=== PATIENT | female | born 1995 | race Caucasian/White ===

== ENCOUNTER 2019-11-25 17:21 | Inpatient (IN) | payer MEDICAID ==
[~2019-11-25] VITALS: Ht 152.4 cm; Wt 79.4 kg
[2019-11-25] MEDS ORDERED: HALOPERIDOL 5 MG TABLET PO PRN (18:15)
[2019-11-25] MEDS ORDERED: ZOLPIDEM TARTRATE 10 MG TABLET PO PRN (18:15)
[2019-11-25] MEDS ORDERED: SERT50TA12 PO (18:39)
[2019-11-25] MEDS ORDERED: QUET100T PO (18:39)
[2019-11-25 19:23] VITALS: BP 106/67
[2019-11-25] MEDS: LORazepam 2 MG TABLET PO PRN (19:42)
[2019-11-25] MEDS ORDERED: CloNIDine HCL 0.1 MG TABLET PO PRN (23:45)
[2019-11-25] MEDS ORDERED: MAG HYDROX/AL HYDROX/SIMETH ES 30 ML SUSPENSION UDCUP PO PRN (23:45)
[2019-11-25] MEDS ORDERED: GuaiFENesin/D-METHORPHAN [SUGAR-FREE] 200-20MG/10 ML SYRUP UDCUP PO PRN (23:45)
[2019-11-25] MEDS ORDERED: ACETAMINOPHEN 325 MG TABLET PO PRN (23:45)
[2019-11-25] MEDS ORDERED: ALBUTEROL SULFATE HFA 90 MCG/PUFF 8 GM INHALER IH PRN (23:45)
[2019-11-25] MEDS ORDERED: IBUPROFEN 400 MG TABLET PO PRN (23:45)
[2019-11-25] MEDS ORDERED: LOPERAMIDE HCL 2 MG CAPSULE PO PRN (23:45)
[2019-11-25] MEDS ORDERED: MAGNESIUM HYDROXIDE SUSPENSION 30 ML UDCUP PO PRN (23:45)
[2019-11-25] MEDS ORDERED: NICOTINE 14 MG/24 HOUR PATCH TD PRN (23:45)
[2019-11-25] MEDS ORDERED: PETROLATUM,WHITE 28 GM JELLY TP PRN (23:45)
[2019-11-25] MEDS ORDERED: DOCUSATE SODIUM 100 MG CAPSULE PO PRN (23:45)
[2019-11-25] MEDS ORDERED: ONDANSETRON HCL 4 MG TABLET PO PRN (23:45)
[2019-11-26 03:47] VITALS: BP 100/68
[2019-11-26 07:59] LABS: BASOPHILS % (AUTO) 0.4 % (0.0-2.0); EOSINOPHILS % (AUTO) 1.4 % (1.0-6.0); HEMATOCRIT 34.1 % (36-46); HEMOGLOBIN 11.2 g/dL (12.0-16.0); LYMPHOCYTES % (AUTO) 31.9 % (22.0-44.0); MEAN CORPUSCULAR HEMOGLOBIN 28.8 pg (26.0-34.0); MEAN CORPUSCULAR HGB CONC 32.8 G/dL (31.0-37.0); MEAN CORPUSCULAR VOLUME 88 fL (80-100); MONOCYTES # (AUTO) 0.4 K/uL (0.1-1.0); MONOCYTES % (AUTO) 7.1 % (2.0-9.0); NEUTROPHILS # (AUTO) 3.7 K/uL (1.8-7.7); NEUTROPHILS % (AUTO) 59.2 % (40.0-70.0); PLATELET COUNT (AUTO) 321 K/uL (150-450); RED BLOOD CELL COUNT(AUTO) 3.88 MIL/uL (4.00-5.20)
[2019-11-26 08:17] LABS: ALANINE AMINOTRANSFERASE 33 U/L (12-78); ALBUMIN 3.1 g/dL (3.4-5.0); ALKALINE PHOSPHATASE 57 U/L (46-116); ANION GAP 5 mmol/L (8-16); ASPARTATE AMINOTRANSFERASE 14 U/L (15-37); BILIRUBIN,TOTAL 0.3 mg/dL (0.1-1.0); CALCIUM, TOTAL 8.6 mg/dL (8.8-10.5); CARBON DIOXIDE 28 mmol/L (22-29); CHLORIDE 106 mmol/L (98-107); CHOL/HDL RATIO 2.5 (3.9-5.7); CHOLESTEROL 208 mg/dL (131-200); CREATININE 0.57 mg/dL (0.60-1.30); GLOMERULAR FILTR. RATE CALC > 60 mL/min (>60); GLUCOSE,RANDOM 83 mg/dL (70-110); HCG,QUANTITATIVE < 1 mIU/mL (0-6); HDL CHOLESTEROL 82 mg/dL (40-60); LDL CHOL (CALC.) 113 mg/dL (0-130); POTASSIUM 4.1 mmol/L (3.5-5.1); SODIUM SERUM 139 mmol/L (136-145); THYROID STIMULATING HORMONE 1.82 uIU/mL (0.36-3.74); TOTAL PROTEIN, SERUM 6.4 g/dL (6.4-8.2); TRIGLYCERIDES 64 mg/dL (15-150); UREA NITROGEN, BLOOD 9 mg/dL (7-18)
[2019-11-26 08:19] VITALS: BP 121/68
[2019-11-26] MEDS: LORazepam 2 MG TABLET PO PRN ×2 (12:43→21:15)
[2019-11-26 16:04] VITALS: BP 105/63
[2019-11-26] MEDS: QUEtiapine FUMARATE 100 MG TABLET PO SCH (21:15)
[2019-11-27 03:37] VITALS: BP 101/76
[2019-11-27 08:31] VITALS: BP 114/68
[2019-11-27] MEDS: SERTRALINE HCL 100 MG TABLET PO SCH (09:20)
[2019-11-27] MEDS: LORazepam 2 MG TABLET PO PRN ×2 (12:43→20:07)
[2019-11-27 16:13] VITALS: BP 118/69
[2019-11-27] MEDS: QUEtiapine FUMARATE 100 MG TABLET PO SCH (20:07)
[2019-11-28 04:28] VITALS: BP 101/78
[2019-11-28 08:22] VITALS: BP 100/60
[2019-11-28] MEDS: SERTRALINE HCL 100 MG TABLET PO SCH (09:37)
[2019-11-28] MEDS: LORazepam 2 MG TABLET PO PRN ×2 (12:33→20:35)
[2019-11-28 16:24] VITALS: BP 103/61
[2019-11-28] MEDS: QUEtiapine FUMARATE 100 MG TABLET PO SCH (20:35)
[2019-11-29 03:45] VITALS: BP 100/76
[2019-11-29] MEDS: SERTRALINE HCL 100 MG TABLET PO SCH (08:31)
[2019-11-29 08:40] VITALS: BP 102/55
[2019-11-29 10:38] VITALS: BP 112/70
[2019-11-29] MEDS: LORazepam 2 MG TABLET PO PRN ×2 (10:39→20:40)
[2019-11-29 16:06] VITALS: BP 114/71
[2019-11-29] MEDS: QUEtiapine FUMARATE 100 MG TABLET PO SCH (20:40)
[2019-11-30 04:46] VITALS: BP 100/72
[2019-11-30] MEDS: SERTRALINE HCL 100 MG TABLET PO SCH (08:19)
[2019-11-30 08:20] VITALS: BP 113/60
[2019-11-30] MEDS: LORazepam 2 MG TABLET PO PRN (12:00)
[2019-11-30 16:41] VITALS: BP 122/76
[2019-11-30] MEDS: QUEtiapine FUMARATE 100 MG TABLET PO SCH (21:17)
[2019-12-01 02:12] VITALS: BP 100/72
[2019-12-01 08:24] VITALS: BP 104/60
[2019-12-01] MEDS: SERTRALINE HCL 100 MG TABLET PO SCH (08:52)
[2019-12-01] MEDS: LORazepam 2 MG TABLET PO PRN (10:38)
[2019-12-01] MEDS ORDERED: SERT100T12 PO (15:17)
== END 2019-12-01 18:22 | disposition home or self-care (01) | DRG 751 ==
LOC: EDBD 18:36 → B3A 18:36
PROVIDERS: ADMIT Psychiatry & Neurology Psychiatry; ATTEND Psychiatry & Neurology Psychiatry
DX: F33.3 Major depressive disorder, recurrent, severe with psychotic symptoms (principal); D64.9 Anemia, unspecified; E78.5 Hyperlipidemia, unspecified; E66.9 Obesity, unspecified; K21.9 Gastro-esophageal reflux disease without esophagitis; Z59.0 Homelessness; Z68.34 Body mass index [BMI] 34.0-34.9, adult
CPT/HCPCS: 83036; 84436; 84439; 84443; 87081

== ENCOUNTER 2020-10-20 07:09 | Emergency (ER) | payer MEDICAID, OTHER ==
[~2020-10-20] VITALS: Ht 152.4 cm; Wt 68.2 kg
[~2020-10-20 07:09] MED LIST: QUET100T PO; SERT100T12 PO
[2020-10-20 07:57] LABS: BASOPHILS % (AUTO) 0.3 % (0.0-2.0); EOSINOPHILS % (AUTO) 0.5 % (1.0-6.0); HEMATOCRIT 38.5 % (36-46); HEMOGLOBIN 12.6 g/dL (12.0-16.0); LYMPHOCYTES # (AUTO) 1.3 K/uL (1.0-4.8); LYMPHOCYTES % (AUTO) 25.5 % (22.0-44.0); MEAN CORPUSCULAR HEMOGLOBIN 29.3 pg (26.0-34.0); MEAN CORPUSCULAR HGB CONC 32.6 G/dL (31.0-37.0); MEAN CORPUSCULAR VOLUME 90 fL (80-100); MONOCYTES # (AUTO) 0.3 K/uL (0.1-1.0); MONOCYTES % (AUTO) 6.7 % (2.0-9.0); NEUTROPHILS # (AUTO) 3.3 K/uL (1.8-7.7); PLATELET COUNT (AUTO) 297 K/uL (150-450); RED BLOOD CELL COUNT(AUTO) 4.28 MIL/uL (4.00-5.20); RED CELL DISTRIBUTION WIDTH 13.9 % (11.5-14.5)
[2020-10-20 08:07] LABS: ANION GAP 9 mmol/L (8-16); CALCIUM, TOTAL 8.2 mg/dL (8.8-10.5); CARBON DIOXIDE 27 mmol/L (22-29); CHLORIDE 104 mmol/L (98-107); CREATININE 0.66 mg/dL (0.60-1.30); GLOMERULAR FILTR. RATE CALC > 60 mL/min (>60); GLUCOSE,RANDOM 88 mg/dL (70-110); POTASSIUM 3.2 mmol/L (3.5-5.1); SODIUM SERUM 140 mmol/L (136-145); UREA NITROGEN, BLOOD 9 mg/dL (7-18)
[2020-10-20 08:12] LABS: ALANINE AMINOTRANSFERASE 137 U/L (12-78); ALBUMIN 3.9 g/dL (3.4-5.0); ALKALINE PHOSPHATASE 97 U/L (46-116); ASPARTATE AMINOTRANSFERASE 78 U/L (15-37); BILIRUBIN,TOTAL 0.3 mg/dL (0.1-1.0)
[2020-10-20 10:21] LABS: AMPHET/METH SCREEN,URINE NEGATIVE (NEGATIVE); BARBITURATE SCREEN, URINE NEGATIVE (NEGATIVE); BENZODIAZEPINES SCREEN,URINE NEGATIVE (NEGATIVE); CANNABINOID SCREEN,URINE POSITIVE (NEGATIVE); COCAINE SCREEN,URINE NEGATIVE (NEGATIVE); METHADONE SCREEN, URINE NEGATIVE (NEGATIVE); OPIATE SCREEN,URINE NEGATIVE (NEGATIVE)
[2020-10-20 10:27] LABS: PHENCYCLIDINE SCREEN,URINE NEGATIVE (NEGATIVE)
[2020-10-20] MEDS ORDERED: POTASSIUM CHLORIDE 20 MEQ ER TABLET PO ONE (11:15)
[2020-10-20 11:45] LABS: HCG,QUANTITATIVE 1 mIU/mL (0-6)
[2020-10-20 13:58] VITALS: BP 107/61
== END 2020-10-20 14:02 | disposition home or self-care (01) ==
LOC: EMS 07:09
DX: F32.9 Major depressive disorder, single episode, unspecified (principal); F12.90 Cannabis use, unspecified, uncomplicated; F11.90 Opioid use, unspecified, uncomplicated
CPT/HCPCS: 36415; 80053; 80307; 81025; 84702; 85025; 99285; G0480

== ENCOUNTER 2020-10-21 10:23 | Inpatient (IN) | payer MEDICAID, OTHER ==
[~2020-10-21] VITALS: Ht 149.9 cm; Wt 75.3 kg
[2020-10-21 11:33] LABS: BASOPHILS % (AUTO) 0.4 % (0.0-2.0); EOSINOPHILS % (AUTO) 0.4 % (1.0-6.0); HEMATOCRIT 36.9 % (36-46); LYMPHOCYTES % (AUTO) 19.9 % (22.0-44.0); MEAN CORPUSCULAR HEMOGLOBIN 29.2 pg (26.0-34.0); MEAN CORPUSCULAR HGB CONC 32.6 G/dL (31.0-37.0); MEAN CORPUSCULAR VOLUME 90 fL (80-100); MONOCYTES # (AUTO) 0.4 K/uL (0.1-1.0); MONOCYTES % (AUTO) 8.4 % (2.0-9.0); NEUTROPHILS # (AUTO) 3.5 K/uL (1.8-7.7); NEUTROPHILS % (AUTO) 70.9 % (40.0-70.0); PLATELET COUNT (AUTO) 263 K/uL (150-450); RED BLOOD CELL COUNT(AUTO) 4.12 MIL/uL (4.00-5.20); RED CELL DISTRIBUTION WIDTH 13.9 % (11.5-14.5)
[2020-10-21 11:41] LABS: ANION GAP 14 mmol/L (8-16); CALCIUM, TOTAL 8.4 mg/dL (8.8-10.5); CARBON DIOXIDE 23 mmol/L (22-29); CHLORIDE 105 mmol/L (98-107); CREATININE 0.78 mg/dL (0.60-1.30); GLOMERULAR FILTR. RATE CALC > 60 mL/min (>60); GLUCOSE,RANDOM 76 mg/dL (70-110); POTASSIUM 3.7 mmol/L (3.5-5.1); SODIUM SERUM 142 mmol/L (136-145); UREA NITROGEN, BLOOD 15 mg/dL (7-18)
[2020-10-21 11:48] LABS: COVID AG,FIA SOURCE NASOPHARYNGEAL
[2020-10-21 12:00] LABS: ALANINE AMINOTRANSFERASE 97 U/L (12-78); ALBUMIN 3.6 g/dL (3.4-5.0); ALKALINE PHOSPHATASE 84 U/L (46-116); ASPARTATE AMINOTRANSFERASE 36 U/L (15-37); BILIRUBIN,TOTAL 0.6 mg/dL (0.1-1.0); HCG,QUANTITATIVE 1 mIU/mL (0-6); TOTAL PROTEIN, SERUM 7.4 g/dL (6.4-8.2)
[2020-10-21] MEDS ORDERED: HALOPERIDOL 5 MG TABLET PO PRN (12:45)
[2020-10-21] MEDS ORDERED: ZOLPIDEM TARTRATE 10 MG TABLET PO PRN (12:45)
[2020-10-21] MEDS ORDERED: LORazepam 2 MG TABLET PO PRN (12:45)
[2020-10-21 15:04] VITALS: BP 107/70
[2020-10-21 16:18] VITALS: BP 108/72
[2020-10-21] MEDS: QUEtiapine FUMARATE 100 MG TABLET PO SCH (20:15)
[2020-10-22] MEDS ORDERED: INFLUENZA VIRUS VACCINE QVS 2020-21 (6MO+)/PF 60 MCG/0.5 ML SYRINGE IM ONE (07:30)
[2020-10-22] MEDS ORDERED: MAG HYDROX/AL HYDROX/SIMETH ES 30 ML SUSPENSION UDCUP PO PRN (08:00)
[2020-10-22] MEDS ORDERED: ALBUTEROL SULFATE HFA 90 MCG/PUFF 8 GM INHALER IH PRN (08:00)
[2020-10-22] MEDS ORDERED: PETROLATUM,WHITE 28 GM JELLY TP PRN (08:00)
[2020-10-22] MEDS ORDERED: ACETAMINOPHEN 325 MG TABLET PO PRN (08:00)
[2020-10-22] MEDS ORDERED: DOCUSATE SODIUM 100 MG CAPSULE PO PRN (08:00)
[2020-10-22] MEDS ORDERED: ONDANSETRON HCL 4 MG TABLET PO PRN (08:00)
[2020-10-22] MEDS ORDERED: GuaiFENesin/D-METHORPHAN [SUGAR-FREE] 200-20MG/10 ML SYRUP UDCUP PO PRN (08:00)
[2020-10-22] MEDS ORDERED: MAGNESIUM HYDROXIDE SUSPENSION 30 ML UDCUP PO PRN (08:00)
[2020-10-22] MEDS ORDERED: IBUPROFEN 400 MG TABLET PO PRN (08:00)
[2020-10-22] MEDS ORDERED: NICOTINE 14 MG/24 HOUR PATCH TD PRN (08:00)
[2020-10-22] MEDS ORDERED: CloNIDine HCL 0.1 MG TABLET PO PRN (08:00)
[2020-10-22] MEDS: SERTRALINE HCL 100 MG TABLET PO SCH (08:36)
[2020-10-22 08:51] VITALS: BP 106/56
[2020-10-22 16:27] VITALS: BP 103/60
[2020-10-22] MEDS: QUEtiapine FUMARATE 100 MG TABLET PO SCH (20:07)
[2020-10-23 00:28] VITALS: BP 102/64
[2020-10-23 08:13] VITALS: BP 100/61
[2020-10-23] MEDS: SERTRALINE HCL 100 MG TABLET PO SCH (08:29)
[2020-10-23 16:06] VITALS: BP 135/73
[2020-10-23] MEDS: QUEtiapine FUMARATE 100 MG TABLET PO SCH (20:45)
[2020-10-24 00:33] VITALS: BP 103/62
[2020-10-24 08:08] VITALS: BP 114/79
[2020-10-24] MEDS: SERTRALINE HCL 100 MG TABLET PO SCH (08:10)
[2020-10-24 16:07] VITALS: BP 113/69
[2020-10-24] MEDS: QUEtiapine FUMARATE 100 MG TABLET PO SCH (20:21)
[2020-10-25 06:24] VITALS: BP 107/60
[2020-10-25] MEDS: SERTRALINE HCL 100 MG TABLET PO SCH (08:29)
[2020-10-25 11:03] VITALS: BP 116/66
[2020-10-25 16:39] VITALS: BP 100/62
[2020-10-25] MEDS: QUEtiapine FUMARATE 100 MG TABLET PO SCH (20:18)
[2020-10-26 00:40] VITALS: BP 106/62
[2020-10-26 08:28] LABS: COVID AG,FIA SOURCE NASOPHARYNGEAL
[2020-10-26 08:46] VITALS: BP 102/67
[2020-10-26] MEDS: SERTRALINE HCL 100 MG TABLET PO SCH (08:49)
[2020-10-26] MEDS: LOPERAMIDE HCL 2 MG CAPSULE PO PRN (20:05)
[2020-10-26] MEDS: QUEtiapine FUMARATE 100 MG TABLET PO SCH (20:05)
[2020-10-27 05:46] VITALS: BP 107/61
[2020-10-27] MEDS: SERTRALINE HCL 100 MG TABLET PO SCH (08:24)
[2020-10-27 09:29] VITALS: BP 100/64
[2020-10-27 16:20] VITALS: BP 102/60
[2020-10-27] MEDS: LOPERAMIDE HCL 2 MG CAPSULE PO PRN (20:12)
[2020-10-27] MEDS: QUEtiapine FUMARATE 100 MG TABLET PO SCH (20:12)
[2020-10-28 07:06] VITALS: BP 111/62
[2020-10-28 07:51] LABS: CHOL/HDL RATIO 3.2 (3.9-5.7)
[2020-10-28] MEDS: SERTRALINE HCL 100 MG TABLET PO SCH (08:06)
[2020-10-28 08:29] VITALS: BP 107/60
[2020-10-28 16:22] VITALS: BP 110/70
[2020-10-28] MEDS: QUEtiapine FUMARATE 100 MG TABLET PO SCH (20:13)
[2020-10-29 06:05] VITALS: BP 99/67
[2020-10-29 08:56] VITALS: BP 130/88
[2020-10-29] MEDS: SERTRALINE HCL 100 MG TABLET PO SCH (10:13)
[2020-10-29 16:19] VITALS: BP 110/60
[2020-10-29] MEDS: QUEtiapine FUMARATE 100 MG TABLET PO SCH (20:13)
[2020-10-30 06:41] VITALS: BP 91/55
[2020-10-30 08:28] VITALS: BP 106/62
[2020-10-30] MEDS: SERTRALINE HCL 100 MG TABLET PO SCH (08:49)
[2020-10-30 17:36] VITALS: BP 108/60
[2020-10-30] MEDS: QUEtiapine FUMARATE 100 MG TABLET PO SCH (20:22)
[2020-10-31 01:17] VITALS: BP 102/63
[2020-10-31] MEDS: SERTRALINE HCL 100 MG TABLET PO SCH (08:45)
[2020-10-31 08:56] VITALS: BP 111/62
== END 2020-10-31 09:57 | disposition home or self-care (01) | DRG 750 ==
LOC: EMS 10:23 → B2S 14:31
PROVIDERS: ADMIT Psychiatry & Neurology Psychiatry; ATTEND Psychiatry & Neurology Psychiatry
DX: F20.9 Schizophrenia, unspecified (principal); E66.9 Obesity, unspecified; I95.9 Hypotension, unspecified; F17.200 Nicotine dependence, unspecified, uncomplicated; R45.851 Suicidal ideations; Z20.822 Contact with and (suspected) exposure to COVID-19; G40.909 Epilepsy, unspecified, not intractable, without status epilepticus; Z81.1 Family history of alcohol abuse and dependence; Z59.0 Homelessness; Z79.899 Other long term (current) drug therapy; Z68.33 Body mass index [BMI] 33.0-33.9, adult
CPT/HCPCS: 87426; 90686; 99285; G0480

== ENCOUNTER 2020-11-30 15:10 | Inpatient (IN) | payer MEDICAID, OTHER ==
[~2020-11-30] VITALS: Ht 157.5 cm; Wt 79.5 kg
[~2020-11-30 15:10] MED LIST changes: +SERT-162 PO; -SERT100T12 PO
[2020-11-30 16:26] LABS: BASOPHILS % (AUTO) 0.4 % (0.0-2.0); EOSINOPHILS % (AUTO) 0.8 % (1.0-6.0); HEMATOCRIT 34.3 % (36-46); HEMOGLOBIN 11.3 g/dL (12.0-16.0); LYMPHOCYTES # (AUTO) 1.5 K/uL (1.0-4.8); MEAN CORPUSCULAR HEMOGLOBIN 29.2 pg (26.0-34.0); MEAN CORPUSCULAR HGB CONC 32.8 G/dL (31.0-37.0); MEAN CORPUSCULAR VOLUME 89 fL (80-100); MONOCYTES # (AUTO) 0.4 K/uL (0.1-1.0); MONOCYTES % (AUTO) 6.8 % (2.0-9.0); NEUTROPHILS # (AUTO) 3.5 K/uL (1.8-7.7); PLATELET COUNT (AUTO) 284 K/uL (150-450); RED BLOOD CELL COUNT(AUTO) 3.86 MIL/uL (4.00-5.20); RED CELL DISTRIBUTION WIDTH 13.8 % (11.5-14.5)
[2020-11-30 16:35] LABS: ANION GAP 9 mmol/L (8-16); CALCIUM, TOTAL 8.7 mg/dL (8.8-10.5); CARBON DIOXIDE 26 mmol/L (22-29); CHLORIDE 105 mmol/L (98-107); CREATININE 0.68 mg/dL (0.60-1.30); GLOMERULAR FILTR. RATE CALC > 60 mL/min (>60); GLUCOSE,RANDOM 112 mg/dL (70-110); POTASSIUM 3.8 mmol/L (3.5-5.1); SODIUM SERUM 140 mmol/L (136-145); UREA NITROGEN, BLOOD 12 mg/dL (7-18)
[2020-11-30 16:40] LABS: ALANINE AMINOTRANSFERASE 117 U/L (12-78); ALBUMIN 3.3 g/dL (3.4-5.0); ALKALINE PHOSPHATASE 96 U/L (46-116); ASPARTATE AMINOTRANSFERASE 32 U/L (15-37); BILIRUBIN,TOTAL 0.2 mg/dL (0.1-1.0); TOTAL PROTEIN, SERUM 7.1 g/dL (6.4-8.2)
[2020-11-30 17:04] LABS: COVID AG,FIA SOURCE NASOPHARYNGEAL
[2020-11-30 17:26] LABS: AMPHET/METH SCREEN,URINE NEGATIVE (NEGATIVE); BARBITURATE SCREEN, URINE NEGATIVE (NEGATIVE); BENZODIAZEPINES SCREEN,URINE NEGATIVE (NEGATIVE); CANNABINOID SCREEN,URINE POSITIVE (NEGATIVE); COCAINE SCREEN,URINE NEGATIVE (NEGATIVE); METHADONE SCREEN, URINE NEGATIVE (NEGATIVE); OPIATE SCREEN,URINE NEGATIVE (NEGATIVE)
[2020-11-30 17:27] LABS: PHENCYCLIDINE SCREEN,URINE NEGATIVE (NEGATIVE)
[2020-11-30] MEDS ORDERED: ACETAMINOPHEN 325 MG TABLET PO ONE (20:15)
[2020-11-30] MEDS ORDERED: HALOPERIDOL 5 MG TABLET PO PRN (21:00)
[2020-12-01 04:27] VITALS: BP 100/61
[2020-12-01] MEDS ORDERED: INFLUENZA VIRUS VACCINE QVS 2020-21 (6MO+)/PF 60 MCG/0.5 ML SYRINGE IM ONE (04:45)
[2020-12-01] MEDS ORDERED: ACETAMINOPHEN 325 MG TABLET PO PRN (08:30)
[2020-12-01] MEDS ORDERED: MAGNESIUM HYDROXIDE SUSPENSION 30 ML UDCUP PO PRN (08:30)
[2020-12-01] MEDS ORDERED: PETROLATUM,WHITE 28 GM JELLY TP PRN (08:30)
[2020-12-01] MEDS ORDERED: DOCUSATE SODIUM 100 MG CAPSULE PO PRN (08:30)
[2020-12-01] MEDS ORDERED: LOPERAMIDE HCL 2 MG CAPSULE PO PRN (08:30)
[2020-12-01] MEDS ORDERED: NICOTINE 14 MG/24 HOUR PATCH TD PRN (08:30)
[2020-12-01] MEDS ORDERED: CloNIDine HCL 0.1 MG TABLET PO PRN (08:30)
[2020-12-01] MEDS ORDERED: ONDANSETRON HCL 4 MG TABLET PO PRN (08:30)
[2020-12-01] MEDS ORDERED: MAG HYDROX/AL HYDROX/SIMETH ES 30 ML SUSPENSION UDCUP PO PRN (08:30)
[2020-12-01] MEDS ORDERED: GuaiFENesin/D-METHORPHAN [SUGAR-FREE] 200-20MG/10 ML SYRUP UDCUP PO PRN (08:30)
[2020-12-01] MEDS ORDERED: IBUPROFEN 400 MG TABLET PO PRN (08:30)
[2020-12-01] MEDS ORDERED: ALBUTEROL SULFATE HFA 90 MCG/PUFF 8 GM INHALER IH PRN (08:30)
[2020-12-01 09:17] VITALS: BP 104/71
[2020-12-01] MEDS: SERTRALINE HCL 100 MG TABLET PO SCH (17:19)
[2020-12-01 18:37] VITALS: BP 107/63
[2020-12-01] MEDS: QUEtiapine FUMARATE 100 MG TABLET PO SCH (20:08)
[2020-12-01] MEDS: ZOLPIDEM TARTRATE 10 MG TABLET PO PRN (21:08)
[2020-12-02 09:06] VITALS: BP 107/75
[2020-12-02] MEDS: SERTRALINE HCL 100 MG TABLET PO SCH (09:33)
[2020-12-02] MEDS: LORazepam 2 MG TABLET PO PRN (13:36)
[2020-12-02 13:40] VITALS: BP 110/67
[2020-12-02] MEDS: QUEtiapine FUMARATE 100 MG TABLET PO SCH (20:40)
[2020-12-02] MEDS: ZOLPIDEM TARTRATE 10 MG TABLET PO PRN (20:53)
[2020-12-03] MEDS: SERTRALINE HCL 100 MG TABLET PO SCH (09:18)
[2020-12-03 12:49] VITALS: BP 106/62
[2020-12-03] MEDS: LORazepam 2 MG TABLET PO PRN (13:05)
[2020-12-03 16:00] VITALS: BP 94/59
[2020-12-03] MEDS: QUEtiapine FUMARATE 100 MG TABLET PO SCH (20:16)
[2020-12-03] MEDS: ZOLPIDEM TARTRATE 10 MG TABLET PO PRN (20:16)
[2020-12-04] MEDS: LORazepam 2 MG TABLET PO PRN (08:12)
[2020-12-04] MEDS: SERTRALINE HCL 100 MG TABLET PO SCH (08:12)
[2020-12-04 10:11] VITALS: BP 106/68
[2020-12-04] MEDS: BusPIRone HCL 10 MG TABLET PO SCH ×2 (10:15→16:53)
[2020-12-04 16:00] VITALS: BP 112/72
[2020-12-04] MEDS: QUEtiapine FUMARATE 25 MG TABLET PO SCH (20:28)
[2020-12-04] MEDS: ZOLPIDEM TARTRATE 10 MG TABLET PO PRN (21:18)
[2020-12-05] MEDS: BusPIRone HCL 10 MG TABLET PO SCH ×2 (07:53→17:00)
[2020-12-05] MEDS: SERTRALINE HCL 100 MG TABLET PO SCH (07:53)
[2020-12-05] MEDS: LORazepam 2 MG TABLET PO PRN ×2 (07:53→14:19)
[2020-12-05 16:00] VITALS: BP 102/67
[2020-12-05] MEDS: QUEtiapine FUMARATE 25 MG TABLET PO SCH (20:40)
[2020-12-06 06:55] VITALS: BP 90/53
[2020-12-06] MEDS: SERTRALINE HCL 100 MG TABLET PO SCH (08:01)
[2020-12-06] MEDS: BusPIRone HCL 10 MG TABLET PO SCH ×2 (08:01→16:48)
[2020-12-06 10:27] VITALS: BP 105/60
[2020-12-06 16:32] VITALS: BP 119/72
[2020-12-06] MEDS: QUEtiapine FUMARATE 25 MG TABLET PO SCH (20:48)
[2020-12-06] MEDS: ZOLPIDEM TARTRATE 10 MG TABLET PO PRN (20:48)
[2020-12-07 04:39] VITALS: BP 90/60
[2020-12-07 08:40] VITALS: BP 103/62
[2020-12-07] MEDS: SERTRALINE HCL 100 MG TABLET PO SCH (09:49)
[2020-12-07] MEDS: BusPIRone HCL 10 MG TABLET PO SCH (09:49)
[2020-12-07] MEDS ORDERED: BUSP10TA23 PO (13:48)
[2020-12-07 16:29] VITALS: BP 106/60
== END 2020-12-07 16:20 | disposition home or self-care (01) | DRG 750 ==
LOC: EMS 15:10 → 3EI 20:57 → 3EC 20:57 → UNDOADMIN 20:57 → 3EI 12-01 03:09
PROVIDERS: ADMIT Psychiatry & Neurology Psychiatry; ATTEND Psychiatry & Neurology Psychiatry
DX: F25.1 Schizoaffective disorder, depressive type (principal); R45.851 Suicidal ideations; Z91.5 Personal history of self-harm; G40.909 Epilepsy, unspecified, not intractable, without status epilepticus; F12.10 Cannabis abuse, uncomplicated; Z90.49 Acquired absence of other specified parts of digestive tract; E78.5 Hyperlipidemia, unspecified; D64.9 Anemia, unspecified; F19.10 Other psychoactive substance abuse, uncomplicated; F31.9 Bipolar disorder, unspecified; F43.10 Post-traumatic stress disorder, unspecified; Z20.822 Contact with and (suspected) exposure to COVID-19; Z23 Encounter for immunization
CPT/HCPCS: 87081; 87426; 90686; 99285; G0480; Q0162

== ENCOUNTER 2020-12-10 10:21 | Emergency (ER) | payer MEDICAID, OTHER ==
[~2020-12-10] VITALS: Ht 160 cm; Wt 81.8 kg
[~2020-12-10 10:21] MED LIST changes: +BUSP10TA23 PO
[2020-12-10 11:21] LABS: COVID AG,FIA SOURCE NASOPHARYNGEAL
[2020-12-10 12:19] VITALS: BP 132/80
[2020-12-10] MEDS ORDERED: AMOX500C2 PO (16:03)
[2020-12-10] MEDS ORDERED: RISP1TAB48 PO (16:03)
[2020-12-10] MEDS ORDERED: QUET25TA PO (19:21)
== END 2020-12-10 12:19 | disposition home or self-care (01) ==
LOC: EMS 10:36
DX: R45.851 Suicidal ideations (principal); F31.9 Bipolar disorder, unspecified; F20.9 Schizophrenia, unspecified; Z20.822 Contact with and (suspected) exposure to COVID-19; Z90.89 Acquired absence of other organs
CPT/HCPCS: 87426; 99284; Z7502

== ENCOUNTER 2020-12-10 15:28 | Inpatient (IN) | payer MEDICAID, OTHER ==
[~2020-12-10] VITALS: Ht 154.9 cm; Wt 83.0 kg
[2020-12-10] MEDS ORDERED: RISP1TAB48 PO (16:03)
[2020-12-10] MEDS ORDERED: AMOX500C2 PO (16:03)
[2020-12-10 16:53] LABS: BASOPHILS % (AUTO) 0.3 % (0.0-2.0); EOSINOPHILS % (AUTO) 0.5 % (1.0-6.0); HEMATOCRIT 36.4 % (36-46); LYMPHOCYTES # (AUTO) 1.9 K/uL (1.0-4.8); LYMPHOCYTES % (AUTO) 25.4 % (22.0-44.0); MEAN CORPUSCULAR HEMOGLOBIN 29.4 pg (26.0-34.0); MEAN CORPUSCULAR VOLUME 89 fL (80-100); MONOCYTES # (AUTO) 0.4 K/uL (0.1-1.0); MONOCYTES % (AUTO) 5.1 % (2.0-9.0); NEUTROPHILS # (AUTO) 5.1 K/uL (1.8-7.7); NEUTROPHILS % (AUTO) 68.7 % (40.0-70.0); PLATELET COUNT (AUTO) 326 K/uL (150-450); RED BLOOD CELL COUNT(AUTO) 4.09 MIL/uL (4.00-5.20); RED CELL DISTRIBUTION WIDTH 13.8 % (11.5-14.5)
[2020-12-10 17:01] LABS: ANION GAP 9 mmol/L (8-16); CALCIUM, TOTAL 8.6 mg/dL (8.8-10.5); CARBON DIOXIDE 27 mmol/L (22-29); CHLORIDE 104 mmol/L (98-107); CREATININE 0.76 mg/dL (0.60-1.30); GLOMERULAR FILTR. RATE CALC > 60 mL/min (>60); GLUCOSE,RANDOM 98 mg/dL (70-110); SODIUM SERUM 140 mmol/L (136-145); UREA NITROGEN, BLOOD 11 mg/dL (7-18)
[2020-12-10 17:14] LABS: ALANINE AMINOTRANSFERASE 40 U/L (12-78); ALBUMIN 3.6 g/dL (3.4-5.0); ALKALINE PHOSPHATASE 95 U/L (46-116); ASPARTATE AMINOTRANSFERASE 15 U/L (15-37); BILIRUBIN,TOTAL 0.2 mg/dL (0.1-1.0); HCG,QUANTITATIVE < 1 mIU/mL (0-6); TOTAL PROTEIN, SERUM 7.7 g/dL (6.4-8.2)
[2020-12-10 17:21] LABS: COVID AG,FIA SOURCE NASOPHARYNGEAL
[2020-12-10] MEDS ORDERED: HALOPERIDOL 5 MG TABLET PO PRN (19:15)
[2020-12-10] MEDS ORDERED: QUET25TA PO (19:21)
[2020-12-10] MEDS: LORazepam 2 MG TABLET PO PRN (20:54)
[2020-12-11 00:44] VITALS: BP 100/61
[2020-12-11] MEDS ORDERED: -PHARMACY VACCINE NOTE- MISC ONE (01:45)
[2020-12-11] MEDS ORDERED: ALBUTEROL SULFATE HFA 90 MCG/PUFF 8 GM INHALER IH PRN (07:15)
[2020-12-11] MEDS ORDERED: MAG HYDROX/AL HYDROX/SIMETH ES 30 ML SUSPENSION UDCUP PO PRN (07:15)
[2020-12-11] MEDS ORDERED: DOCUSATE SODIUM 100 MG CAPSULE PO PRN (07:15)
[2020-12-11] MEDS ORDERED: GuaiFENesin/D-METHORPHAN [SUGAR-FREE] 200-20MG/10 ML SYRUP UDCUP PO PRN (07:15)
[2020-12-11] MEDS ORDERED: CloNIDine HCL 0.1 MG TABLET PO PRN (07:15)
[2020-12-11] MEDS ORDERED: PETROLATUM,WHITE 28 GM JELLY TP PRN (07:15)
[2020-12-11] MEDS ORDERED: NICOTINE 14 MG/24 HOUR PATCH TD PRN (07:15)
[2020-12-11] MEDS ORDERED: ACETAMINOPHEN 325 MG TABLET PO PRN (07:15)
[2020-12-11] MEDS ORDERED: IBUPROFEN 400 MG TABLET PO PRN (07:15)
[2020-12-11] MEDS ORDERED: MAGNESIUM HYDROXIDE SUSPENSION 30 ML UDCUP PO PRN (07:15)
[2020-12-11] MEDS ORDERED: ONDANSETRON HCL 4 MG TABLET PO PRN (07:15)
[2020-12-11] MEDS ORDERED: LOPERAMIDE HCL 2 MG CAPSULE PO PRN (07:15)
[2020-12-11] MEDS: LORazepam 2 MG TABLET PO PRN ×2 (08:53→16:15)
[2020-12-11 09:21] LABS: CHOL/HDL RATIO 2.6 (3.9-5.7)
[2020-12-11] MEDS: RisperiDONE 1 MG TABLET PO SCH (13:46)
[2020-12-11] MEDS: SERTRALINE HCL 100 MG TABLET PO SCH (13:47)
[2020-12-11] MEDS: BusPIRone HCL 10 MG TABLET PO SCH (16:12)
[2020-12-11] MEDS: QUEtiapine FUMARATE 25 MG TABLET PO SCH (16:12)
[2020-12-11 16:26] VITALS: BP 107/60
[2020-12-12 00:51] VITALS: BP 102/63
[2020-12-12] MEDS: RisperiDONE 1 MG TABLET PO SCH (08:31)
[2020-12-12] MEDS: QUEtiapine FUMARATE 25 MG TABLET PO SCH ×2 (08:32→16:03)
[2020-12-12] MEDS: SERTRALINE HCL 100 MG TABLET PO SCH (08:32)
[2020-12-12] MEDS: BusPIRone HCL 10 MG TABLET PO SCH ×2 (08:32→16:03)
[2020-12-12 08:35] VITALS: BP 118/81
[2020-12-12] MEDS: LORazepam 2 MG TABLET PO PRN (12:00)
[2020-12-12 16:26] VITALS: BP 120/84
[2020-12-12] MEDS: ZOLPIDEM TARTRATE 10 MG TABLET PO PRN (18:16)
[2020-12-13 00:23] VITALS: BP 110/80
[2020-12-13 08:24] VITALS: BP 110/70
[2020-12-13] MEDS: BusPIRone HCL 10 MG TABLET PO SCH ×2 (08:30→16:45)
[2020-12-13] MEDS: RisperiDONE 1 MG TABLET PO SCH (08:30)
[2020-12-13] MEDS: SERTRALINE HCL 100 MG TABLET PO SCH (08:30)
[2020-12-13] MEDS: QUEtiapine FUMARATE 25 MG TABLET PO SCH ×2 (08:30→16:45)
[2020-12-13 16:30] VITALS: BP 105/60
[2020-12-13] MEDS: ZOLPIDEM TARTRATE 10 MG TABLET PO PRN (21:01)
[2020-12-13] MEDS: LORazepam 2 MG TABLET PO PRN (22:07)
[2020-12-14 01:58] VITALS: BP 126/76
[2020-12-14 08:17] VITALS: BP 121/73
[2020-12-14] MEDS: RisperiDONE 1 MG TABLET PO SCH (08:45)
[2020-12-14] MEDS: QUEtiapine FUMARATE 25 MG TABLET PO SCH ×2 (08:45→16:00)
[2020-12-14] MEDS: BusPIRone HCL 10 MG TABLET PO SCH ×2 (08:45→16:00)
[2020-12-14] MEDS: SERTRALINE HCL 100 MG TABLET PO SCH (08:45)
[2020-12-14 09:21] LABS: FREE T4 (FREE THYROXINE) 0.83 ng/dL (0.76-1.46); THYROID STIMULATING HORMONE 2.42 uIU/mL (0.36-3.74)
[2020-12-14] MEDS: LORazepam 2 MG TABLET PO PRN (16:00)
[2020-12-14 17:10] VITALS: BP 107/65
[2020-12-14] MEDS: ZOLPIDEM TARTRATE 10 MG TABLET PO PRN (20:05)
[2020-12-15 00:35] VITALS: BP 102/66
[2020-12-15] MEDS: RisperiDONE 1 MG TABLET PO SCH (08:17)
[2020-12-15] MEDS: SERTRALINE HCL 100 MG TABLET PO SCH (08:17)
[2020-12-15] MEDS: QUEtiapine FUMARATE 25 MG TABLET PO SCH ×2 (08:17→16:36)
[2020-12-15] MEDS: BusPIRone HCL 10 MG TABLET PO SCH ×2 (08:17→16:36)
[2020-12-15 08:39] VITALS: BP 100/64
[2020-12-15 12:40] VITALS: BP 112/72
[2020-12-15] MEDS: LORazepam 2 MG TABLET PO PRN ×2 (12:46→20:17)
[2020-12-15 16:31] VITALS: BP 100/68
[2020-12-15] MEDS: ZOLPIDEM TARTRATE 10 MG TABLET PO PRN (20:17)
[2020-12-16 04:08] VITALS: BP 102/65
[2020-12-16] MEDS: RisperiDONE 1 MG TABLET PO SCH (08:32)
[2020-12-16] MEDS: LORazepam 2 MG TABLET PO PRN ×2 (08:32→19:19)
[2020-12-16] MEDS: QUEtiapine FUMARATE 25 MG TABLET PO SCH ×2 (08:32→16:45)
[2020-12-16] MEDS: BusPIRone HCL 10 MG TABLET PO SCH ×2 (08:32→16:45)
[2020-12-16] MEDS: SERTRALINE HCL 100 MG TABLET PO SCH (08:32)
[2020-12-16 08:51] VITALS: BP 122/68
[2020-12-16 18:38] VITALS: BP 100/68
[2020-12-16] MEDS: ZOLPIDEM TARTRATE 10 MG TABLET PO PRN (20:07)
[2020-12-17 00:50] VITALS: BP 102/73
[2020-12-17] MEDS: QUEtiapine FUMARATE 25 MG TABLET PO SCH (08:14)
[2020-12-17] MEDS: BusPIRone HCL 10 MG TABLET PO SCH (08:15)
[2020-12-17] MEDS: RisperiDONE 1 MG TABLET PO SCH (08:15)
[2020-12-17] MEDS: SERTRALINE HCL 100 MG TABLET PO SCH (08:15)
== END 2020-12-17 14:05 | disposition home or self-care (01) | DRG 750 ==
LOC: EMS 15:28 → B3A 19:00
PROVIDERS: ADMIT Psychiatry & Neurology Psychiatry; ATTEND Psychiatry & Neurology Psychiatry
DX: F25.0 Schizoaffective disorder, bipolar type (principal); E78.00 Pure hypercholesterolemia, unspecified; R45.851 Suicidal ideations; I10 Essential (primary) hypertension; G40.909 Epilepsy, unspecified, not intractable, without status epilepticus; E78.5 Hyperlipidemia, unspecified; F43.10 Post-traumatic stress disorder, unspecified; Z20.822 Contact with and (suspected) exposure to COVID-19; Z91.19 Patient's noncompliance with other medical treatment and regimen; Z90.49 Acquired absence of other specified parts of digestive tract; Z59.0 Homelessness
CPT/HCPCS: 84439; 84443; 87081; 87426; 99285; G0480